=== PATIENT | female | born 1990 ===

== ENCOUNTER 2021-11-26 06:29 | Inpatient (IN) | payer SELFPAY ==
[2021-11-26] MEDS ORDERED: OXYTOCIN DRIP 30,000 MILLIUNITS/500 ML BAG IV ONE (06:55)
--- NOTE | 2021-11-26 07:24 | History and Physical Report ---
History of Present Illness Date of examination: 11/26/21 Date of admission: 11/26/2021 Chief complaint: Presents to labor and delivery in active labor. History of present illness: at 38 + week with care at [facility]. Current care is unremarkable. Past History Past Medical History: other (hx Gestational diabetes but not with this ) Past Surgical History: no surgical history INFORMATION TECHNOLOGY ACCOUNT MANAGER History: chlamydia Family/Genetic History: none Social history: no significant social history - Obstetrical History Expected Date of Delivery: 12/07/21 Actual Gestation: 38 Week(s) 3 Day(s) : 5 Para: 4 Number of Living Children: 4 Medications and Allergies Allergies Allergy/AdvReac Type Severity Reaction Status Date / Time No Known Allergies Allergy Verified 06/07/13 03:55 Home Medications Medication Instructions Recorded Confirmed Last Taken Type Ferrous Sulfate [Feosol 325 MG tab] 325 mg PO BID #60 tablet 06/08/13 Unknown Rx Ibuprofen [Motrin 600 MG tab] 800 mg PO Q8H PRN #30 tablet 06/08/13 Unknown Rx Vit-Fe Fumar-FA [ 1 each PO QDAY #30 tablet 06/08/13 Unknown Rx Vitamin] Review of Systems All systems: negative - Vital Signs Vital signs: Vital Signs Pulse BP 151 H 114/56 11/26/21 07:04 11/26/21 07:04 Temp Pulse Resp BP Pulse Ox 98 F 151 H 20 114/56 11/26/21 07:10 11/26/21 07:04 11/26/21 07:10 11/26/21 07:04 - Physical Exam Breasts: Positive: deferred Cardiovascular: Regular rate Lungs: Positive: Clear to auscultation Abdomen: Positive: soft Genitourinary (Female): Positive: normal external genitalia Vulva: both: normal Vagina: Positive: normal moisture Uterus: Positive: enlarged Extremities: Positive: normal Deep Tendon Reflex Grade: Normal +2 - Obstetrical FHR: auscultation normal, category 1 Cervical Dilatation: 10 Cervical Effacement Percentage: 10 station: 1+ Uterine Contraction Pattern: Regular Uterine Contraction Intensity: Moderate Results All other labs normal. Assessment and Plan A: Active labor @ term P: Expect
--- NOTE | 2021-11-26 07:34 | Procedure Note ---
OB Delivery Note - Delivery Date of Delivery: 11/26/21 Surgeon: YUNI BAUMAN Estimated blood loss: 100cc - Vaginal Delivery presentation: vertex Delivery position: OA Intrapartum events: precipitous labor- <3hr Delivery induction: none Route of delivery: Delivery placenta: spontaneous Delivery cord: 3 umbilical vessels Episiotomy: none Delivery laceration: none Anesthesia: none Delivery comments: of a viable female on 11/26/2021 @ 0658 over intact perineum. Placenta delivered 3 VCI. 8/9. QBL 100cc Mother and baby doing well. - Infant A at 1 minute: 8 at 5 minutes: 9 Infant Gender: Female
[2021-11-26] MEDS ORDERED: miSOPROStol 200 MCG TAB PR PRN (07:35)
[2021-11-26] MEDS ORDERED: METHYLERGONOVINE MALEATE 0.2 MG/ML VIAL IM PRN (07:35)
[2021-11-26] MEDS ORDERED: LOPERAMIDE 2 MG CAP PO PRN (07:35)
[2021-11-26] MEDS ORDERED: CARBOPROST TROMETHAMINE 250 MCG/1 ML INJ IM PRN (07:35)
[2021-11-26] MEDS ORDERED: LANOLIN/ZINC/DIMETHICONE (LANSINOH) 7 GM TP PRN (07:40)
[2021-11-26 07:47] LABS: Hematocrit 38.6 % (30.3-42.9); Hemoglobin 12.9 gm/dl (10.1-14.3)
[2021-11-26] MEDS ORDERED: ePHEDrine SULFATE 50 MG/1 ML INJ IV PRN (08:00)
[2021-11-26] MEDS ORDERED: LACTATED RINGERS 1,000 ML IV SCH (08:00)
[2021-11-26] MEDS ORDERED: OXYTOCIN DRIP 30 UNITS/500 ML BAG IV SCH (08:00)
[2021-11-26] MEDS ORDERED: BUTORPHANOL 2 MG/1 ML INJ IV PRN ×2 (08:00)
[2021-11-26] MEDS ORDERED: ACETAMINOPHEN 325 MG TAB PO PRN ×2 (08:00)
[2021-11-26] MEDS ORDERED: WITCH HAZEL/ GLYCERIN PAD TP PRN (08:00)
[2021-11-26] MEDS: IBUPROFEN 600 MG TAB PO SCH ×2 (13:36→20:20)
[2021-11-26] MEDS: oxyCODONE /ACETAMINOPHEN 5-325MG TAB PO PRN ×2 (16:35→23:38)
[2021-11-26 21:28] LABS: Hematocrit 34.9 % (30.3-42.9); Hemoglobin 11.3 gm/dl (10.1-14.3)
[2021-11-26] MEDS ORDERED: MINERAL OIL 30 ML ORAL LIQD PO PRN (22:00)
[2021-11-27] MEDS: IBUPROFEN 600 MG TAB PO SCH (05:30)
--- NOTE | 2021-11-27 11:01 | Progress Note ---
Assessment and Plan A: S/P P: D/c home per pt's request Subjective - Subjective Date of service: 11/27/21 Principal diagnosis: S/P Patient reports: appetite normal, voiding normally, pain well controlled, ambulating normally : doing well, bottle feeding Objective - Vital Signs Latest vital signs: Vital Signs Temp Pulse Resp BP BP Pulse Ox Pulse Ox 11/27/21 09:20 98.3 F 73 18 107/66 99 11/27/21 01:32 97.9 F 70 20 98/68 95 11/26/21 20:20 98 11/26/21 16:35 20 11/26/21 13:35 98.4 F 72 20 104/65 98 11/26/21 11:29 98.3 F 80 16 108/72 96 Intake and Output 11/26/21 11/27/21 11/27/21 22:59 06:59 14:59 Intake Total 240 240 320 Output Total 600 900 500 Balance -360 -660 -180 Intake: Oral 240 320 Intake, Free Water 240 Output: Urine 600 900 500 Void 600 900 500 Other: Total, Intake Amount 120 320 Total, Output Amount 600 900 500 Voiding Method Toilet # Voids Void 2 3 - Exam Breasts: Present: normal Abdomen: Present: normal appearance, soft, normal bowel sounds Vulva: both: normal Uterus: Present: normal, firm, fundal height below umbilicus Extremities: Present: normal - Labs Labs: Abnormal lab results 11/26/21 Range/Units 11:05 SARS-CoV-2 (PCR) Positive A (Negative)
--- NOTE | 2021-11-27 11:07 | Discharge Summary ---
Providers - Providers Date of Admission: 11/26/21 07:28 Date of discharge: 11/27/21 Attending physician: YOUSIF ARAUZ Primary care physician: YOUSIF ARAUZ Hospitalization Reason for admission: active labor, IUP at term Delivery: Episiotomy: none Laceration: none Other procedures: none complications: none Discharge diagnosis: IUP at term delivered [place] baby: female Hospital course: Pt presented to [facility] and had a w/o pp complications. See H&P, delivery summary, and pp notes. Condition at discharge: Stable Disposition: 01 HOME / SELF CARE / HOMELESS Plan - Discharge Medications Prescriptions: Ibuprofen [Motrin 600 MG tab] 600 mg PO Q6HR PRN #30 tablet PRN Reason: Menstrual Cramps - Provider Discharge Summary Activity: routine, no sex for 6 weeks, no heavy lifting 4 weeks, no strenuous exercise Diet: routine Instructions: routine Additional instructions: [] Smoking cessation referral if applicable(refer to patient education folder for contact #) [] Refer to [facility] Booklet Call your doctor immediately for: * Fever > 100.5 * Heavy vaginal bleeding ( >1 pad per hour) * Severe persistent headache * Shortness of breath * Reddened, hot, painful area to leg or breast * Drainage or odor from incision. * Keep incision clean and dry at all times and follow doctor's instructions regarding bathing/showering - Follow up plan Follow up: YOUSIF ARAUZ MD [Primary Care Provider] - 6 Weeks
[2021-11-27 17:34] VITALS: BP 106/60
== END 2021-11-27 16:50 | disposition home or self-care (01) | DRG 807 ==
LOC: TRG 06:29 → APU 06:33 → LD 06:48 → TRG 07:27 → LD 07:28 → OB 10:06
PROVIDERS: ADMIT Obstetrics & Gynecology; ATTEND Obstetrics & Gynecology
PROC: 10E0XZZ Delivery of Products of Conception, External Approach (ICD-10-PCS; principal; 2021-11-26)
DX: O62.3 Precipitate labor (principal); Z37.0 Single live birth; Z3A.38 38 weeks gestation of pregnancy
CPT/HCPCS: 36415; 85014; 85018; 86850; 86900; 86901; G0378; U0003